=== PATIENT | female | born 1955 | race Caucasian/White ===

== ENCOUNTER 2020-08-01 09:13 | Day surgery (SDC) | payer MEDICARE ==
[~2020-08-01] VITALS: Ht 160 cm; Wt 47.8 kg
[~2020-08-01 09:13] MED LIST: ACET325; ALBU90OI INH
--- NOTE | 2020-08-01 10:05 | NUR ---
08/01/20 1005 DEBBIE VASQUEZ History, Chart, Medications and Allergies reviewed before start of procedure. 3-LEAD EKG REVIEWED WITH PHYSICIAN PRIOR TO START OF PROCEDURE. O2 VIA N/C INTACT THROUGHOUT SEDATION/PROCEDURE. MONITOR INTACT WITH CONTINUOUS PULSE OXIMETRY AND INTERMITTENT BP. PATIENT DETERMINED TO BE ASA APPROPRIATE FOR PROPOFOL SEDATION PRIOR TO START OF PROCEDURE BY .
--- NOTE | 2020-08-01 10:58 | NUR ---
Patient up to Ambulate independently. Gait steady. Discharge instructions reviewed with patient. Patient verbalizes understanding. Copy given to patient to take home. Patient States Post-Procedure ride home has been arranged. Discharged via wheelchair to private car for ride home. ALL BELONGINGS RETUNED TO PATIENT.
== END 2020-08-01 23:08 | disposition home or self-care (01) ==
LOC: ORSCMMR 09:13 → ORD 10:00 → ORSCMMR 10:00
PROVIDERS: Internal Medicine Gastroenterology
PROC: 0DBN8ZX Excision of Sigmoid Colon, Via Natural or Artificial Opening Endoscopic, Diagnostic (ICD-10-PCS; principal; 2020-08-01 10:00)
PROC: 0DBH8ZX Excision of Cecum, Via Natural or Artificial Opening Endoscopic, Diagnostic (ICD-10-PCS; principal; 2020-08-01 10:00)
DX: R19.5 Other fecal abnormalities (principal); D12.0 Benign neoplasm of cecum; D12.5 Benign neoplasm of sigmoid colon; K63.5 Polyp of colon; J44.9 Chronic obstructive pulmonary disease, unspecified; F17.210 Nicotine dependence, cigarettes, uncomplicated; Z79.899 Other long term (current) drug therapy
CPT/HCPCS: 88305; J2250; J2704; J7120

== ENCOUNTER → 2025-01-01 | Outpatient (CLI) | payer OTHER ==
[2025-01-01 09:26] LABS: Source, Urine Clean Catch
[2025-01-01 12:40] LABS: Appearance, Urine Clear (Clear); Bilirubin, Urine Neg (Neg); Blood, Urine 5+ (Neg); Color, Urine Yellow (P-Yellow); Glucose Qualitative, Urine Neg (Neg); Ketones, Urine Neg (Neg); Leukocyte Esterase, Urine Neg (Neg); Nitrite, Urine Neg (Neg); Protein, Urine 1+ (Neg); Urobilinogen, Urine NORM (Normal)
[2025-01-01 12:54] LABS: Squamous Epithelial Cells Few /hpf (Few)
[2025-01-01 12:55] LABS: Bacteria Mod /hpf
[2025-01-01 12:56] LABS: Red Blood Cells, Urine 25-50 /hpf (0-2)
== END ==
LOC: LAB 08:57 → LAB SHORT 08:57
PROVIDERS: Family Medicine
DX: R31.9 Hematuria, unspecified (principal)
CPT/HCPCS: 81001; 87086

== ENCOUNTER 2025-05-28 13:03 | Emergency (ER) | payer OTHER ==
[~2025-05-28] VITALS: Ht 160 cm; Wt 63.5 kg
[2025-05-28 13:50] LABS: Source, Urine Clean Catch
[2025-05-28 13:56] LABS: BASOPHILS ABSOLUTE AUTO 0.07 K/mm3 (0.00-0.23); BASOPHILS PERCENT AUTO 1 % (0-2); EOSINOPHILS ABSOLUTE AUTO 0.23 K/mm3 (0.00-0.68); EOSINOPHILS PERCENT AUTO 2 % (0-6); Hematocrit 42.4 % (33.0-51.0); Hemoglobin 14.1 g/dL (11.5-16.0); IMMATURE GRAN ABSOLUTE AUTO 0.07 K/mm3 (0.00-0.10); IMMATURE GRAN PERCENT AUTO 1 % (0-1); LYMPHOCYTES ABSOLUTE AUTO 1.81 K/mm3 (0.84-5.20); LYMPHOCYTES PERCENT AUTO 15 % (21-46); MONOCYTES ABSOLUTE AUTO 0.81 K/mm3 (0.16-1.47); MONOCYTES PERCENT AUTO 7 % (4-13); Mean Corpuscular HGB 30.3 pg (26.0-34.0); Mean Corpuscular HGB Conc 33.3 g/dL (31.5-36.5); Mean Corpuscular Volume 91 fL (80-100); Mean Platelet Volume 9.6 fL (9.1-12.4); NEUTROPHILS ABSOLUTE AUTO 8.94 K/mm3 (1.96-9.15); NEUTROPHILS PERCENT AUTO 75 % (41-73); Platelet Count 228 K/mm3 (150-400); RDW Coefficient Variation 12.1 % (11.7-14.2); RDW Standard Deviation 40.3 fL (35.1-46.3); Red Blood Cell Count 4.66 M/mm3 (3.80-5.20); White Blood Cell Count 11.93 K/mm3 (4.00-11.30)
[2025-05-28 14:20] LABS: Albumin, Blood 3.4 g/dL (3.4-5.0); Albumin/Globulin Ratio 0.9 (0.8-1.8); Bilirubin, Total 0.7 mg/dL (0.1-1.0); Bun/Creatinine Ratio 12.7 (12.0-20.0); Calcium, Blood 9.3 mg/dL (8.5-10.1); Creatinine, Blood 0.87 mg/dL (0.40-1.00); Globulin, Blood 3.8 g/dL (2.2-4.0); Potassium, Blood 3.9 mmol/L (3.5-5.5); Total Protein, Blood 7.2 g/dL (6.4-8.2)
[2025-05-28 14:47] LABS: Appearance, Urine Cloudy (Clear); Bilirubin, Urine Neg (Neg); Blood, Urine 5+ (Neg); Color, Urine Amber (P-Yellow); Glucose Qualitative, Urine Neg (Neg); Ketones, Urine 1+ (Neg); Leukocyte Esterase, Urine 1+ (Neg); Nitrite, Urine Neg (Neg); Protein, Urine 3+ (Neg); Urobilinogen, Urine 1+ (Normal)
[2025-05-28 15:05] LABS: Bacteria Many /hpf; Mucus Light (0-Heavy); Red Blood Cells, Urine TNTC /hpf (0-2); Squamous Epithelial Cells Few /hpf (Few); Transitional Epithelial Cells Rare /hpf (0-Rare)
[2025-05-28 15:51] VITALS: BP 97/69
[2025-05-28] MEDS ORDERED: BACTRIM DS TAB1 EAC1 PO (16:39)
[2025-05-28] MEDS ORDERED: Trimethoprim/Sulfamethoxazole DS Tab PO ONE (16:40)
== END 2025-05-28 16:45 | disposition home or self-care (01) ==
LOC: ER 13:03
PROVIDERS: Student in an Organized Health Care Education/Training Program
DX: N12 Tubulo-interstitial nephritis, not specified as acute or chronic (principal)
CPT/HCPCS: 74177; 80053; 81001; 83690; 85025; 87086; 93005; 93010; 99284-25; A9270; Q9967

== ENCOUNTER → 2025-06-14 | Outpatient (CLI) | payer OTHER ==
[~2025-06-14] MED LIST changes: +BACTRIM DS TAB1 EAC1 PO
== END ==
LOC: LAB 18:25 → LAB SHORT 18:25
DX: R31.29 Other microscopic hematuria (principal)
CPT/HCPCS: 87086

== ENCOUNTER → 2025-07-02 | Outpatient (CLI) | payer OTHER ==
[2025-07-02 18:25] LABS: Red Blood Cells, Urine 50-100 /hpf (0-2)
== END ==
LOC: LAB 16:51 → LAB SHORT 16:51
PROVIDERS: Urology
DX: N20.0 Calculus of kidney (principal); R31.0 Gross hematuria
CPT/HCPCS: 81015

== ENCOUNTER 2025-10-03 09:05 | Day surgery (SDC) | payer OTHER ==
[~2025-10-03] VITALS: Ht 160 cm; Wt 57.1 kg
[~2025-10-03 09:05] MED LIST changes: +Crestor40 MG PO; +ELIQUIS5 M2 PO; +FORMOTEROL20 MCG/2 M IH; +TAMS.4ER; +VENL37.5 PO
--- NOTE | 2025-10-03 09:38 | NUR ---
History, Chart, Medications and Allergies reviewed before start of procedure. Pre-Op teaching done. Pt verbalizes understanding. Patient confirms NPO status and agrees with scheduled surgery. Patient states colon prep results LIGHT YELLOW.
[2025-10-03 09:46] VITALS: BP 118/87
--- NOTE | 2025-10-03 10:46 | NUR ---
10/03/25 1046 Anne Marie Hyman MONITOR INTACT WITH CONTINUOUS PULSE OXIMETRY, CONTINUOUS END TITAL CO2, 3-LEAD EKG AND INTERMITTENT BLOOD PRESSURE.
[2025-10-03 11:41] VITALS: BP 110/79
--- NOTE | 2025-10-03 11:42 | NUR ---
Discharged via wheelchair to private car for ride home. Discharge instructions reviewed with patient. Patient verbalizes understanding. Copy given to patient to take home. Patient States Post-Procedure ride home has been arranged.
== END 2025-10-03 23:00 | disposition home or self-care (01) ==
LOC: ORSCMMR 09:05 → ORD 10:00 → ORSCMMR 10:00
PROVIDERS: Internal Medicine Gastroenterology
PROC: 0DBK8ZX Excision of Ascending Colon, Via Natural or Artificial Opening Endoscopic, Diagnostic (ICD-10-PCS; principal; 2025-10-03 10:00)
PROC: 0DBP8ZX Excision of Rectum, Via Natural or Artificial Opening Endoscopic, Diagnostic (ICD-10-PCS; principal; 2025-10-03 10:00)
DX: Z12.11 Encounter for screening for malignant neoplasm of colon (principal); K62.1 Rectal polyp; K63.5 Polyp of colon; D12.2 Benign neoplasm of ascending colon; Z86.0101 Personal history of adenomatous and serrated colon polyps; J44.9 Chronic obstructive pulmonary disease, unspecified; K21.9 Gastro-esophageal reflux disease without esophagitis; I48.0 Paroxysmal atrial fibrillation; Z95.0 Presence of cardiac pacemaker; E78.00 Pure hypercholesterolemia, unspecified; F32.A Depression, unspecified; Z79.01 Long term (current) use of anticoagulants; Z79.899 Other long term (current) drug therapy; F17.210 Nicotine dependence, cigarettes, uncomplicated
CPT/HCPCS: 88305; J2704; J7120